=== PATIENT | female | born 1965 | race Caucasian/White ===

== ENCOUNTER 2023-06-30 09:05 | Outpatient (OUT) | payer BC, SELFPAY ==
--- NOTE | 2023-06-30 09:17 | MM_ITS ---
Patient Name: DENIA MARQUEZ MR#: [id number] : 1965 Exam Date: 06/30/2023 Ordering Doctor: DR Bartolo Lyn . RADIOLOGY REPORT PROCEDURE: MM TOMOSYNTHESIS SCREENING BI COMPARISON: MG MAMM SCREEN 3D MISHEL CAD, 06/19/2022. MG MAMM SCREEN 3D MISHEL CAD, 05/27/2021. MG MAMM SCREEN MISHEL W CAD, 05/03/2020. MG MAMM SCREEN MISHEL W CAD, 03/30/2019. INDICATIONS: Screening Calculator Name NCI Breast Cancer Risk Assessment Tool 5 Year Breast Cancer Risk 1.20% Lifetime Breast Cancer Risk 6.70% Personal Breast Cancer No Personal Ovarian Cancer No Treatments None Family Cancers None LOCATION: [facility] BREAST COMPOSITION: Heterogeneously dense,which may obscure small masses. FINDINGS: DIAGNOSTIC CATEGORY 2--BENIGN FINDING: RIGHT BREAST: No significant suspicious finding. Scattered benign-appearing lymph nodes are present. No significant change has occurred. LEFT BREAST: No significant suspicious finding. Scattered benign-appearing lymph nodes are present. No significant change has occurred. RECOMMENDATIONS: ROUTINE MAMMOGRAM AND CLINICAL EVALUATION IN 12 MONTHS. PLEASE NOTE: A NORMAL MAMMOGRAM DOES NOT EXCLUDE THE POSSIBILITY OF BREAST CANCER. A CLINICALLY SUSPICIOUS PALPABLE LUMP SHOULD BE BIOPSIED. Dictated by: Sumit Mckeon M.D. on 07/01/2023 at 14:40 Approved by: Sumit Mckeon M.D. on 07/01/2023 at 14:44
[2023-06-30 09:56] LABS: Basophils Percent Auto 0.5 % (0.2-2.0); Eosinophils Absolute Auto 0.3 10^3/uL (0.0-0.7); Eosinophils Percent Auto 4.4 % (0.9-7.0); Hematocrit 39.7 % (36.0-48.0); Hemoglobin 13.2 g/dL (12.0-16.0); Immature Granulocytes Abs Auto 0.02 10^3/uL (0.00-0.03); Immature Granulocytes Pct Auto 0.3 % (0.0-0.5); Lymphocytes Absolute Auto 1.5 10^3/uL (1.2-3.8); Lymphocytes Percent Auto 26.3 % (20.5-60.0); Mean Corpuscular HGB Conc 33.2 g/dL (29.9-35.2); Mean Corpuscular Volume 96.1 fL (81.0-99.0); Mean Platelet Volume 10.4 fL (9.5-13.5); Monocytes Absolute Auto 0.5 10^3/uL (0.3-0.8); Monocytes Percent Auto 9.4 % (1.7-12.0); Neutrophils Absolute Auto 3.4 10^3/uL (1.4-6.5); Neutrophils Percent Auto 59.1 % (43.0-75.0); Platelet Count 256 10^3/uL (150-450); Red Blood Count 4.13 10^6/uL (4.20-5.40); Red Cell Distribution Width 12.1 % (11.0-15.0); White Blood Count 5.7 10^3/uL (4.0-11.0)
[2023-06-30 10:55] LABS: Alanine Aminotransferase 30 U/L (14-59); Albumin Globulin Ratio 1.1; Albumin Level 3.5 g/dL (3.4-5.0); Alkaline Phosphatase 87 U/L (46-116); Anion Gap 10.8; Aspartate Amino Transferase 14 U/L (15-37); BUN Creatinine Ratio 26.7; Bilirubin Total 0.3 mg/dL (0.2-1.0); Calcium 9.7 mg/dL (8.5-10.1); Chloride 105 mmol/L (98-107); Chol HDL Ratio 2.4; Cholesterol 128 mg/dL (<=200); Estimated GFR (African America >60 (>=60); Estimated GFR (Non-African Ame >60 (>=60); Free T3 2.27 pg/mL (2.18-3.98); Globulin 3.1 g/dL; Glucose 91 mg/dL (74-106); HDL Cholesterol 54 mg/dL (40-60); Potassium 3.8 mmol/L (3.5-5.1); Sodium 142 mmol/L (136-145); Thyroid Stimulating Hormone 0.017 uIU/mL (0.358-3.740); Total Protein 6.6 g/dL (6.4-8.2); Triglycerides 50 mg/dL (<=150)
[2023-06-30 11:40] LABS: Estimated Average Glucose 103 mg/dL; Glycohemoglobin A1C 5.2 % (4.5-6.2)
== END 2023-06-30 09:06 | disposition home or self-care (01) ==
LOC: MAMMO 09:09
PROVIDERS: PCP Family Medicine; Visit Provider Family Medicine
DX: Z00.00 Encounter for general adult medical examination without abnormal findings (principal); Z12.31 Encounter for screening mammogram for malignant neoplasm of breast; E03.9 Hypothyroidism, unspecified; R53.83 Other fatigue; D64.9 Anemia, unspecified; E78.5 Hyperlipidemia, unspecified
CPT/HCPCS: 36415; 77063; 77067; 80053; 80061; 83036; 84436; 84443; 84481; 85025

== ENCOUNTER 2024-07-07 11:13 | Outpatient (OUT) | payer BC, SELFPAY ==
[2024-07-07 11:31] LABS: Basophils Percent Auto 0.6 % (0.2-2.0); Eosinophils Absolute Auto 0.2 10^3/uL (0.0-0.7); Eosinophils Percent Auto 2.3 % (0.9-7.0); Hematocrit 42.5 % (36.0-48.0); Hemoglobin 13.8 g/dL (12.0-16.0); Immature Granulocytes Abs Auto 0.02 10^3/uL (0.00-0.03); Immature Granulocytes Pct Auto 0.3 % (0.0-0.5); Lymphocytes Absolute Auto 1.9 10^3/uL (1.2-3.8); Lymphocytes Percent Auto 27.2 % (20.5-60.0); Mean Corpuscular HGB Conc 32.5 g/dL (29.9-35.2); Mean Corpuscular Hemoglobin 31.5 pg (26.7-34.0); Mean Platelet Volume 10.2 fL (9.5-13.5); Monocytes Absolute Auto 0.5 10^3/uL (0.3-0.8); Monocytes Percent Auto 6.5 % (1.7-12.0); Neutrophils Absolute Auto 4.4 10^3/uL (1.4-6.5); Neutrophils Percent Auto 63.1 % (43.0-75.0); Platelet Count 304 10^3/uL (150-450); Red Blood Count 4.38 10^6/uL (4.20-5.40); Red Cell Distribution Width 12.1 % (11.0-15.0); White Blood Count 6.9 10^3/uL (4.0-11.0)
[2024-07-07 12:03] LABS: Alanine Aminotransferase 23 U/L (14-59); Albumin Globulin Ratio 1.2; Albumin Level 3.8 g/dL (3.4-5.0); Alkaline Phosphatase 84 U/L (46-116); Aspartate Amino Transferase 17 U/L (15-37); BUN Creatinine Ratio 17.4; Bilirubin Total 0.6 mg/dL (0.2-1.0); Carbon Dioxide 31.9 mmol/L (21.0-32.0); Chloride 104 mmol/L (98-107); Chol HDL Ratio 2.3; Cholesterol 163 mg/dL (<=200); Estimated GFR (African America >60 (>=60 mL/min/1.73m^2); Estimated GFR (Non-African Ame >60 (>=60 mL/min/1.73m^2); Free T3 2.81 pg/mL (2.18-3.98); Globulin 3.3 g/dL; Glucose 91 mg/dL (74-106); HDL Cholesterol 72 mg/dL (40-60); Potassium 3.9 mmol/L (3.5-5.1); Sodium 137 mmol/L (136-145); Thyroid Stimulating Hormone 0.066 uIU/mL (0.358-3.740); Total Protein 7.1 g/dL (6.4-8.2); Triglycerides 59 mg/dL (<=150); VLDL CHOLESTEROL 11.8 mg/dL
[2024-07-07 12:20] LABS: Estimated Average Glucose 103 mg/dL; Glycohemoglobin A1C 5.2 % (4.5-6.2)
== END 2024-07-07 11:14 | disposition home or self-care (01) ==
LOC: LAB 11:13
PROVIDERS: PCP Family Medicine; Visit Provider Family Medicine
DX: Z00.00 Encounter for general adult medical examination without abnormal findings (principal); Z12.31 Encounter for screening mammogram for malignant neoplasm of breast
CPT/HCPCS: 36415; 77063; 77067; 80053; 80061; 83036; 83540; 84436; 84443; 84481; 85025

== ENCOUNTER 2024-07-07 12:46 | Outpatient (OUT) | payer BC, SELFPAY ==
--- NOTE | 2024-07-07 12:50 | MM_ITS ---
Patient Name: DENIA MARQUEZ MR#: [id number] : 1965 Exam Date: 07/07/2024 Ordering Doctor: DR Bartolo Lyn . RADIOLOGY REPORT PROCEDURE: MM TOMOSYNTHESIS SCREENING BI COMPARISON: MM TOMOSYNTHESIS SCREENING BI, 06/30/2023. MG MAMM SCREEN 3D MISHEL CAD, 06/19/2022. MG MAMM SCREEN 3D MISHEL CAD, 05/27/2021. MG MAMM SCREEN MISHEL W CAD, 03/30/2019. INDICATIONS: Screening Calculator Name NCI Breast Cancer Risk Assessment Tool 5 Year Breast Cancer Risk 1.30% Lifetime Breast Cancer Risk 6.60% Personal Breast Cancer No Personal Ovarian Cancer No Treatments None Family Cancers None LOCATION: [facility] BREAST COMPOSITION: The breasts are heterogeneously dense,which may obscure small masses. FINDINGS: DIAGNOSTIC CATEGORY 2--BENIGN FINDING: RIGHT BREAST: No significant suspicious finding. No significant change has occurred. LEFT BREAST: No significant suspicious finding. Scattered benign-appearing lymph nodes are present. No significant change has occurred. RECOMMENDATIONS: ROUTINE MAMMOGRAM AND CLINICAL EVALUATION IN 12 MONTHS. PLEASE NOTE: A NORMAL MAMMOGRAM DOES NOT EXCLUDE THE POSSIBILITY OF BREAST CANCER. A CLINICALLY SUSPICIOUS PALPABLE LUMP SHOULD BE BIOPSIED. Dictated by: Sumit Mckeon M.D. on 07/07/2024 at 15:13 Approved by: Sumit Mckeon M.D. on 07/07/2024 at 15:19
== END 2024-07-07 12:47 | disposition home or self-care (01) ==
LOC: MAMMO 12:46
PROVIDERS: PCP Family Medicine; Visit Provider Family Medicine
DX: Z12.31 Encounter for screening mammogram for malignant neoplasm of breast (principal)
CPT/HCPCS: 77063; 77067

== ENCOUNTER 2025-07-11 09:11 | Outpatient (OUT) | payer BC, SELFPAY ==
--- OUTSIDE RECORDS SUMMARY | 2025-07-11 09:14 | XMS_ITS | CCD ---
Author Organization [facility] Care Team Providers Care Analytical Manager Name Role Phone DARLENE AZUL Referring Unavailable DARLENE AZUL Primary Care Unavailable LATHA, DR COLON Primary Care Unavailable LATHA, DR COLON Admitting Unavailable LATHA, DR COLON Attending Unavailable LATHA, DR COLON Consulting Unavailable LATHA, DR COLON Primary Care Unavailable LATHA, DR COLON Admitting Unavailable LATHA, DR COLON Attending Unavailable LATHA, DR COLON Consulting Unavailable WEST, DR MY Matt Consulting Unavailable DARLENE AZUL Primary Care Unavailable EVA VIVAR Attending Unavailable STANTON PARK Attending UnavailSTANTON Jay Referring UnavailDARLENE Sorenson Primary Care Unavailable Allergies Allergy ClassificationReported Allergen(s)Allergy TypeDate of OnsetReaction(s) Facility (1 source)Penicillins; Translations: [PENICILLINS]Propensity to adverse reactions to drug (disorder)09-34-4424XcqMzlatg Repository Problems Problem ClassificationProblemDateDocumented DateEpisodic/ChronicConditions associated with dizziness or vertigo (2 sources)Dizziness and giddiness; Translations: [Dizziness]Onset: 09-17-2023 EpisodicConditions associated with dizziness or vertigo (1 source)Conditions associated with dizziness or vertigoOnset: 09-17-2023 Diabetes mellitus without complication (1 source)Hyperglycemia, unspecified; Translations: [HYPERGLYCEMIA UNSPECIFIED] Onset: 18-14-6094SqidtovbObciufscn of lipid metabolism (1 source)Hyperlipidemia, unspecified; Translations: [HYPERLIPIDEMIA UNSPECIFIED]Onset: 69-29-1456JaodsvgMcdhpgzfc hypertension (1 source)Hypertensive disorderOnset: 53-24-8869BsohybdGlnzixx and fatigue (1 source)Other fatigue; Translations: [OTHER FATIGUE]Onset: 63-96-4801Uqpbsqta Nutritional deficiencies (1 source)Vitamin D deficiency, unspecified; Translations: [VITAMIN D DEFICIENCY UNSPECIFIED]Onset: 46-60-3898HilncowGcmxn screening for suspected conditions (not mental disorders or infectious disease) (2 sources)Encounter for screening for malignant neoplasm of rectum; Translations: [Encounter for screening mammogram for malignant neoplasm of breast]Onset: 73-45-3679EgenllepVpeesbn disorders (7 sources)Hypothyroidism, unspecified; Translations: [Hypothyroidism, unspecified]Onset: 74-62-3132Aedmhdk Results Test NameValueInterpretationReference RangeFacilityCBC AND AUTO DIFFon 58-75-1812XBKUJHFB BASOPHIL0.1 X10E9/LNormal0.0-0.2PFayette [facility] Comment on above:Performed By: #### CBCA, 58268-9, THYR, CMP, #### [facility] ([id number]) [address] [place] [address] 18293THRZGFZZ NEUTROPHIL4.9 X10E9/LNormal1.5-6.6ProCorpus Christi Medical Center NorthwestComment on above:Performed By: #### CBCA, 63641-6, THYR, CMP, #### [facility] ([id number]) [address] [place] [address] 99750Gmblzqury/100 WBC (Bld)0.8 %NormalSelect Medical [facility] Comment on above:Performed By: #### CBCA, 10563-8, THYR, CMP, #### [facility] ([id number]) [address] [place] [address] 21985Mipgflfeubw (Bld) [#/Vol]0.1 10*3/uLNormal0.0-0.4[facility] ShawComment on above:Performed By: #### CBCA, 24033-8, THYR, CMP, #### [facility] ([id number]) [address] [place] [address] 80179Tsqbfgxombu/100 WBC (Bld)1.7 %NormalSelect Medical [facility] Comment on above:Performed By: #### CBCA, 99939-9, THYR, CMP, 06893-7 #### [facility] ([id number]) [address] [place] [address] 47997Kdsbutotjnw distribution width (RBC) [Ratio]13.0 %Normal 11.5-15.0[facility], [facility] ShawComment on above:Performed By: #### CBCA, 33343-9, THYR, CMP, #### [facility] ([id number]) [address] [place] [address] 95724Ksejrfkxhm (Bld) [Volume fraction]37.0 %Ujxhjb34-95PgdMdswekCorpus Christi Medical Center NorthwestComment on above:Performed By: #### CBCA, 35531-2, THYR, CMP, 31011-4 #### [facility] ([id number]) [address] [place] [address] 09754Fqrvzyeshj (Bld) [Mass/Vol]12.8 g/bVPvrlwx24.7-15.5PFayette County Memorial HospitalComment on above:Performed By: #### CBCA, 86948-6, THYR, CMP, 77454-7 #### [facility] ([id number]) [address] [place] [address] 69332Ueqceroeoxv (Bld) [#/Vol]1.7 10*3/uLNormal1.0-3.5PFayette County Memorial HospitalComment on above:Performed By: #### CBCA, 32396-2, THYR, CMP, 00195-4 #### [facility] ([id number]) [address] [place] [address] 99786Xnukgjqpifh/100 WBC (Bld)23.7 %NormalSelect Medical [facility] Comment on above:Performed By: #### CBCA, 57729-6, THYR, CMP, #### [facility] ([id number]) [address] [place] [address] 76405VFA (RBC) [Entitic mass]32.2 bwZymobk93-97ZbtXnwfojSelect Medical [facility] Hospital, [facility] ShawComment on above:Performed By: #### CBCA, 66345-4, THYR, CMP, 16866-0 #### [facility] ([id number]) [address] [place] [address] 52617DSCX (RBC) [Mass/Vol]34.6 g/dJJxlepn61-80OcsDpxjvsCorpus Christi Medical Center NorthwestComment on above:Performed By: #### CBCA, 96464-1, THYR, CMP, #### [facility] ([id number]) [address] [place] [address] 62012FVE (RBC) [Entitic vol]93 wVWhcbkp00-520WkxBeqtgu Fremont HospitalComment on above:Performed By: #### CBCA, 31435-4, THYR, CMP, 01715-3 #### [facility] ([id number]) [address] [place] [address] 95096Ftaeqdwjl (Bld) [#/Vol]0.5 10*3/uLNormal0-0.9[facility] ShawComment on above:Performed By: #### CBCA, 46488-8, THYR, CMP, 33230-3 #### [facility] ([id number]) [address] [place] [address] 94205Ghiqwfeqj/100 WBC (Bld)6.5 %NormalSelect Medical [facility] Comment on above:Performed By: #### CBCA, 96148-4, THYR, CMP, 57799-2 #### [facility] ([id number]) [address] [place] [address] 12747Swgqvvfppsh/100 WBC (Bld)67.3 %NormalSelect Medical [facility] Clinic [facility] Comment on above:Performed By: #### CBCA, 76487-0, THYR, CMP, 95236-1 #### [facility] ([id number]) [address] [place] [address] 49178Kyxeebgb mean volume (Bld) [Entitic vol]8.9 fLNormal7-12 ProMedicNorthridge Hospital Medical CenterComment on above:Performed By: #### CBCA, 72956-1, THYR, CMP, 88337-7 #### [facility] ([id number]) [address] [place] [address] 07866Dewhqvano (Bld) [#/Vol]253 10*3/tCDltfao107-649NtpDgfdvtSelect Medical [facility] Clinic Rehabilitation Hospital, [facility] ShawComment on above:Performed By: #### CBCA, 26402-5, THYR, CMP, 32050-4 #### [facility] ([id number]) [address] [place] [address] 74109TAD COUNT3.98 X10E12/LNormal3.80-5.20[facility] Comment on above:Performed By: #### CBCA, 13591-4, THYR, CMP, #### [facility] ([id number]) [address] [place] [address] 91147NCG (Bld) [#/Vol]7.3 10*3/uLNormal4.0-11.0[facility] ShawComment on above:Performed By: #### CBCA, 05455-0, THYR, CMP, 38048-7 #### [facility] ([id number]) [address] [place] [address] 57559KOAODKGTCDRLS METABOLIC PANELon 58-41-9694Lmdqvja [Mass/Vol]4.1 g/dLNormal3.2-5.3PFayette County Memorial HospitalComment on above:Performed By: #### CBCA, 68066-7, THYR, CMP, 67333-5 #### [facility] ([id number]) [address] [place] [address] 96461NHL [Catalytic activity/Vol]73 U/OEwshby78-976MfaEmsiqhSelect Medical Cleveland Clinic Rehabilitation Hospital, Edwin ShawComment on above:Performed By: #### CBCA, 11083-5, THYR, CMP, 12032-6 #### [facility] ([id number]) [address] [place] [address] 99862XBS [Catalytic activity/Vol]20 U/LNormal0-31PFayette County Memorial HospitalComment on above:Performed By: #### CBCA, 98456-3, THYR, CMP, 32964-8 #### [facility] ([id number]) [address] [place] [address] 18656Iqvlv gap [Moles/Vol]2 mmol/LLow5-15ProCorp[facility] Comment on above:Performed By: #### CBCA, 41338-6, THYR, CMP, 19307-7 #### [facility] ([id number]) [address] [place] [address] 63400GVU [Catalytic activity/Vol]23 U/LNormal0-41ProCorpus Christi Medical Center NorthwestComment on above:Performed By: #### CBCA, 46349-8, THYR, CMP, 97977-2 #### [facility] ([id number]) [address] [place] [address] 62187Vmessdblx [Mass/Vol]0.5 mg/dLNormal0.3-1.2PFayette County Memorial HospitalComment on above:Performed By: #### CBCA, 65312-8, THYR, CMP, 12957-0 #### [facility] ([id number]) [address] [place] [address] 95177Vppoanr [Mass/Vol]9.9 mg/dLNormal8.5-10.5PFayette County Memorial HospitalComment on above:Performed By: #### CBCA, 43717-9, THYR, CMP, 05262-0 #### [facility] ([id number]) [address] [place] [address] 33430Wrqgtayn [Moles/Vol]109 mmol/UYckkwi58-842RrmJdzawoSelect Medical [facility] Clinic Rehabilitation Hospital, [facility] ShawComment on above:Performed By: #### CBCSaurabh, 01144-9, THYR, CMP, 77432-9 #### [facility] ([id number]) [address] [place] [address] 44354NB5 [Moles/Vol]27 mmol/SDyckpv30-01KuhTmwxfiFayette County Memorial Hospital Comment on above:Performed By: #### JUAN, 90473-6, THYR, CMP, 56912-9 #### [facility] ([id number]) [address] [place] [address] 38153Yjptqrnvng [Mass/Vol]0.57 mg/dLNormal0.40-1.00ProCorpus Christi Medical Center NorthwestComment on above:Result Comment: METHOD TRACEABLE TO IDMS STANDARD Performed By: #### JUAN, 24040-3, THYR, CMP, 53666-0 #### [facility] ([id number]) [address] [place] [address] 82357lKWE (CKD-EPI) NON-RACE DEPENDENT>90Normal>59ProCorpus Christi Medical Center NorthwestComment on above:Result Comment: Reported eGFR is based on the CKD-EPI 2021 equation that does not use a race coefficient.Performed By: #### CBCA, 89781-2, THYR, CMP, 29081-0 #### [facility] ([id number]) [address] [place] [address] 62877Ynmemel [Mass/Vol]93 mg/nQMricnv11-85ZvtQrctnrSelect Medical [facility] Comment on above:Performed By: #### CBCA, 35237-7, THYR, CMP, 23602-6 #### [facility] ([id number]) [address] [place] [address] 80929Rnunzzqbk [Moles/Vol]3.6 mmol/LNormal3.5-5.0ProCorpus Christi Medical Center NorthwestComment on above:Performed By: #### JUAN, 33641-5, THYR, CMP, 60379-6 #### [facility] ([id number]) [address] [place] [address] 75343Txudcfv [Mass/Vol]6.9 g/dLNormal6.0-8.0ProCorpus Christi Medical Center NorthwestComment on above:Performed By: #### JUAN, 35914-7, THYR, CMP, 79683-5 #### [facility] ([id number]) [address] [place] [address] 37805Hrcagx [Moles/Vol]138 mmol/TInypdj525-097EkkAeotah Fremont HospitalComment on above:Performed By: #### JUAN, 62085-3, THYR, CMP, 48390-5 #### [facility] ([id number]) [address] [place] [address] 12641Gydc nitrogen [Mass/Vol]17 mg/dLNormal5-23ProCorpus Christi Medical Center NorthwestComment on above:Performed By: #### JUAN, 35717-8, THYR, CMP, 26525-6 #### [facility] ([id number]) [address] [place] [address] 16568WC BRAIN WO CONTon 25-41-0566DT BRAIN WO CONTCT BRAIN WO CONT EXAM:CT BRAIN WO CONT INDICATION: Vertigo, peripheral COMPARISON: 11/29/2013 TECHNIQUE: Standard noncontrast axial CT sections through the head. All CT scans at this facility use dose modulation, iterative reconstruction, and/or weight based dosing when appropriate to reduce radiation dose to as low as reasonably achievable. FINDINGS: Brain Parenchyma: No acute hemorrhage, cerebral edema, or acute cortical infarction. No mass effect, or midline shift. Ventricles and Sulci: Normal for age. Extra-Axial Spaces: No extra-axial fluid collection. Orbits, paranasal sinuses, midface structures, mastoid air cells: Normal Cranium and extracranial soft tissues: Normal IMPRESSION: No acute or subacute intracranial abnormalities. Finalized by Kenji Chavez on 09/17/2023 11:06 AMNormalProCorpus Christi Medical Center NorthwestMAGNESIUMon 30-90-5849Rxfdcdthu [Mass/Vol]2.1 mg/dLNormal1.8-2.6 ProMSuburban Medical CenterComment on above:Performed By: #### CBCA, 66365-6, THYR, CMP, 51168-3 #### [facility] ([id number]) [address] [place] [address] 47440VDJXQAK PROFILEon 46-60-7351Ykpj T4 [Mass/Vol]1.13 ng/dLNormal 0.61-1.60[facility] ShawComment on above:Performed By: #### CBCA, 48252-7, THYR, CMP, 08096-1 #### [facility] ([id number]) [address] [place] [address] 48771ZFU3.01 uIU/mLLow0.49-4.67[facility], [facility] ShawComment on above:Performed By: #### CBCA, 42150-6, THYR, CMP, 93835-2 #### [facility] ([id number]) [address] [place] [address] 33792NDKRRORO Ion 17-72-3250Zkjxngbe I.cardiac [Mass/Vol]ng/mLNormal 0.00-0.04[facility], [facility] ShawComment on above:Performed By: #### CBCA, 81094-3, THYR, CMP, 89187-9 #### [facility] ([id number]) [address] [place] [address] 88704CNYTKPAwt 40-99-1590Xfbmvev1.5 uIU/mLNormal2.6-24.9The [facility] HospitalComment on above:Performed By: #### INSULIN #### [facility] [address] [place] [address] Dr. Nicole Salgado AUTO DIFFon 31-03-2391SEFY #0.0 103/ulNormal0.0-0.1The [facility] HospitalComment on above:Performed By: #### CBC #### [facility] [address] [place] [address] Dr. Nicole HaiderBasophils/100 WBC (Bld)0.8 %Normal0.2-2.0[facility] Comment on above:Performed By: #### CBC #### [facility] [address] [place] [address] Dr. Nicole Osullivan #0.1 103/ulNormal0.0-0.7The [facility] HospitalComment on above: Performed By: #### CBC #### [facility] [address] [place] [address] Dr. Nicole Valdesosinophils/100 WBC (Bld)2.0 %Normal0.9-7.0[facility] Comment on above:Performed By: #### CBC #### [facility] [address] [place] [address] Dr. Nicole Valdesrythrocyte distribution width (RBC) [Ratio]12.2 %Epofhr49.0-15.0 [facility]ittman HospitalComment on above:Performed By: #### CBC #### [facility] [address] [place] [address] Dr. Nicole HaiderHematocrit (Bld) [Volume fraction]40.6 %Rgzehv20.0-48.0The [facility] HospitalComment on above:Performed By: #### CBC #### [facility] [address] [place] [address] Dr. Nicole HaiderHemoglobin (Bld) [Mass/Vol]13.5 g/qVXlhbsa12.0-16.0[facility]itt[facility] HospitalComment on above:Performed By: #### CBC #### [facility] [address] [place] [address] Dr. Nicole Bradford #0.02 10e3/ulNormal0.00-0.03The [facility] HospitalComment on above:Performed By: #### CBC #### [facility] [address] [place] [address] Dr. Nicole Bradford %0.4 %Normal0.0-0.5The [facility] HospitalComment on above: Performed By: #### CBC #### [facility] [address] [place] [address] Dr. Nicole MunozLaisha #1.2 103/ulNormal1.2-3.8The [facility] HospitalComment on above:Performed By: #### CBC #### [facility] [address] [place] [address] Dr. Nicole Munozhocytes/100 WBC (Bld)23.0 %Mdbjwf99.5-60.0The [facility] HospitalCommclaren bay special care hospital on above:Performed By: #### CBC #### [facility] [address] [place] [address] Dr. Nicole VillafanaUAL DIFF REQNONormalThe [facility] HospitalComment on above: Performed By: #### CBC #### [facility] [address] [place] [address] Dr. Nicole Canada (RBC) [Entitic mass]31.7 tgHwbovk21.7-34.0The [facility] on above:Performed By: #### CBC #### [facility] [address] [place] [address] Dr. Nicole Canada (RBC) [Mass/Vol]33.3 g/rLBafegb38.9-35.2The [facility] HospitalComment on above:Performed By: #### CBC #### [facility] [address] [place] [address] Dr. Nicole Canada (RBC) [Entitic vol]95.3 eHLxswya68.0-99.0The [facility] HospitalComment on above:Performed By: #### CBC #### [facility] [address] [place], [place] [address] Dr. Nicole Araya #0.3 103/ulNormal0.3-0.8The [facility] HospitalComment on above:Performed By: #### CBC #### [facility] [address] [place] [address] Dr. Nicole Millerocytes/100 WBC (Bld)6.5 %Normal1.7-12.0The [facility] Comment on above:Performed By: #### CBC #### [facility] [address] [place] [address] Dr. Nicole Cee #3.4 103/ulNormal1.4-6.5The [facility] HospitalComment on above:Performed By: #### CBC #### [facility] [address] [place] [address] Dr. Nicole Yoonutrophils/100 WBC (Bld)67.3 %Hpuhjk80.0-75.0The [facility] HospitalComment on above:Performed By: #### CBC #### [facility] [address] [place] [address] Dr. Nicole Hernandezlet mean volume (Bld) [Entitic vol]10.4 fLNormal9.5-13.5The [facility] HospitalComment on above:Performed By: #### CBC #### [facility] [address] [place] [address] Dr. Nicole HaiderPLT274 103/dhWjsfxb123-797Bmd [facility] HospitalComment on above: Performed By: #### CBC #### [facility] [address] [place] [address] Dr. Nicole HaiderRBC4.26 106/ulNormal4.20-5.40The [facility] HospitalComment on above:Performed By: #### CBC #### [facility] [address] [place] [address] Dr. Nicole HaiderWBC5.0 103/ulNormal4.0-11.0The [facility] HospitalComment on above: Performed By: #### CBC #### [facility] [address] [place] [address] Dr. Nicole Menezes T3on 23-35-9773JEZQ T32.54 pg/mlLNormal2.18-3.98[facility]itt[facility] HospitalComment on above:Performed By: #### INSULIN #### [facility] [address] [address] [address] Nicole JuanID PROFILEon 66-43-6636MMJV-HDL RATIO NORMSEE BELOWNoUniversity Hospitals Geauga Medical CenterComment on above:Result Comment: 3.3 - 4.4 LOW RISK 4.4 - 7.1 AVERAGE RISK 7.1 - 11.0 MODERATE RISK >11.0 HIGH RISKPerformed By: #### T4, FT3, TSH, LIPID, CMP #### [facility] [address] [address] [address] Nicole Paytonesterol [Mass/Vol]156 mg/dLNormal<=200The [facility] Comment on above:Performed By: #### T4, FT3, TSH, LIPID, CMP #### [facility] [address] [address] [address] Nicole Paytonesterol in HDL [Mass/Vol]65 mg/dLCritically vdnf84-80Yjc [facility] HospitalCommclaren bay special care hospital on above:Performed By: #### T4, FT3, TSH, LIPID, CMP #### [facility] [address] [address] [address] Nicole Paytonesterol in LDL [Mass/Vol]81.4 mg/dLNoUniversity Hospitals Geauga Medical CenterCommclaren bay special care hospital on above:Performed By: #### T4, FT3, TSH, LIPID, CMP #### [facility] [address] [address] [address] Nicole Villar.total/Cholesterol in HDL [Mass ratio]2.4 {ratio} NormalThe [facility] Hospital on above:Performed By: #### T4, FT3, TSH, LIPID, CMP #### [facility] [address] [place] [address] Dr. Nicole Jackson NORMAL> or = 60 mg/dl - LOW CARDIOVASCULAR RISK <40 mg/dl - HIGH CARDIOVASCULAR RISKNormalThe Ana HospitalComment on above:Performed By: #### T4, FT3, TSH, LIPID, CMP #### [facility] [address] [address] [address] Nicole Serrano CALC NORMALSEE BELOWCrystal Clinic Orthopedic CenterComment on above:Result Comment: <100 mg/dl OPTIMAL 100 - 129 mg/dl NEAR OR ABOVE OPTIMAL 130 - 159 mg/dl BORDERLINE HIGH 160 - 189 mg/dl HIGH >190 mg/dl VERY HIGH Performed By: #### T4, FT3, TSH, LIPID, CMP #### [facility] [address] [address] [address] Nicole HaiderTriglyceride [Mass/Vol]48 mg/dLNormal<=150[facility] Comment on above:Performed By: #### T4, FT3, TSH, LIPID, CMP #### [facility] [address] [address] [address] Nicole HaiderVLDL CALC9.6 mg/dLNoUniversity Hospitals Geauga Medical CenterComment on above: Performed By: #### T4, FT3, TSH, LIPID, CMP #### [facility] [address] [address] [address] Nicole HaiderMG MAMM SCREEN 3D MISHEL CADon 10-10-5735MC MAMM SCREEN 3D MISHEL CAD Patient: DENIA MARQUEZ Exam Date: 06/19/2022 : 1965 Gender:F Ordering : DR DARLENE AZUL . Admission #: [id number] Family : Order #: [id number] CLICK HERE TO VIEW EXAM RADIOLOGY REPORT PROCEDURE: MAMMOGRAM SCREENING 3D BILATERAL CAD COMPARISON: MG MAMM SCREEN MISHEL W CAD, 05/03/2020. MG MAMM SCREEN 3D MISHEL CAD, 05/27/2021. INDICATIONS: Screening mammography Calculator Name NCI Breast Cancer Risk Assessment Tool 5 Year Breast Cancer Risk 1.20% Lifetime Breast Cancer Risk 6.90% Personal Breast Cancer No Personal Ovarian Cancer No Treatments None Family Cancers None LOCATION: [facility] BREAST COMPOSITION: Heterogeneously dense,which may obscure small masses. FINDINGS: DIAGNOSTIC CATEGORY 2--BENIGN FINDING. NO CHANGE FROM COMPARISON. Scattered benign-appearing nodules are present. Scattered benign-appearing calcifications are present. Scattered benign-appearing lymph nodes are present. RIGHT BREAST: No significant suspicious finding. LEFT BREAST: No significant suspicious finding. RECOMMENDATIONS: ROUTINE MAMMOGRAM AND CLINICAL EVALUATION IN 12 MONTHS. PLEASE NOTE: A NORMAL MAMMOGRAM DOES NOT EXCLUDE THE POSSIBILITY OF BREAST CANCER. A CLINICALLY SUSPICIOUS PALPABLE LUMP SHOULD BE BIOPSIED. Dictated by: My Perez MD on 06/19/2022 at 13:45 Approved by: My Perez MD on 06/19/2022 at 13:48[facility] PROF 14(COMP METB)on 34-87-8438Hcphkxh [Mass/Vol]3.9 g/dLNormal3.4-5.0[facility]ittman HospitalComment on above:Performed By: #### T4, FT3, TSH, LIPID, CMP #### [facility] [address] [place] [address] Dr. Nicole HaiderAlbumin/Globulin [Mass ratio]1.1 {ratio}NormalThe [facility] HospitalComment on above:Performed By: #### T4, FT3, TSH, LIPID, CMP #### [facility] [address] [place] [address] Dr. Nicole Hamilton [Catalytic activity/Vol]91 U/PXkrawi05-836Oak [facility] on above:Performed By: #### T4, FT3, TSH, LIPID, CMP #### [facility] [address] [place] [address] Dr. Nicole Lazo [Catalytic activity/Vol]15 U/NVksmmt56-87Koc [facility] on above:Performed By: #### T4, FT3, TSH, LIPID, CMP #### [facility] [address] [place] [address] Dr. Nicole Levi gap [Moles/Vol]8.4 mmol/LNormalThe [facility] on above:Performed By: #### T4, FT3, TSH, LIPID, CMP #### [facility] [address] [place] [address] Dr. Nicole San [Catalytic activity/Vol]11 U/LCritically clr35-44Xqi [facility] Hospitalment on above:Performed By: #### T4, FT3, TSH, LIPID, CMP #### [facility] [facility] [address] [address] [address] Nicole HaiderBilirubin [Mass/Vol]0.5 mg/dLNormal0.2-1.0[facility] Comment on above:Performed By: #### T4, FT3, TSH, LIPID, CMP #### [facility] [address] [address] [address] Nicole HaiderCalcium [Mass/Vol]10.2 mg/dLCritically high8.5-10.1The [facility] HospitalComment on above:Performed By: #### T4, FT3, TSH, LIPID, CMP #### [facility] [address] [place] [address] Dr. Nicole HaiderChloride [Moles/Vol]106 mmol/VUycell61-537Tod [facility] Comment on above:Performed By: #### T4, FT3, TSH, LIPID, CMP #### [facility] [address] [place] [address] Dr. Nicole HaiderCO2 [Moles/Vol]28.8 mmol/BJaylic42.0-32.0[facility] Comment on above:Performed By: #### T4, FT3, TSH, LIPID, CMP #### [facility] [address] [place] [address] Dr. Nicole HaiderCreatinine [Mass/Vol]0.64 mg/dLNormal0.55-1.02[facility] HospitalComment on above:Performed By: #### T4, FT3, TSH, LIPID, CMP #### [facility] [address] [place] [address] Dr. Nicole ValdesGFR-AF MONGOLIAN>60Normal>=60The [facility] HospitalComment on above:Performed By: #### T4, FT3, TSH, LIPID, CMP #### [facility] [address] [place] [address] Dr. Nicole ValdesGFR-NON AF MONGOLIAN>60Normal>=60[facility] HospitalComment on above:Performed By: #### T4, FT3, TSH, LIPID, CMP #### [facility] [address] [place] [address] Dr. Nicole HaiderGlobulin (S) [Mass/Vol]3.5 g/dLNoUniversity Hospitals Geauga Medical CenterComment on above:Performed By: #### T4, FT3, TSH, LIPID, CMP #### [facility] [address] [place] [address] Dr. Nicole HaiderGlucose [Mass/Vol]96 mg/sIWstgpm81-791Vqa [facility] Comment on above:Performed By: #### T4, FT3, TSH, LIPID, CMP #### [facility] [address] [place] [address] Dr. Nicole HaiderPotassium [Moles/Vol]4.2 mmol/LNormal3.5-5.1[facility] Comment on above:Performed By: #### T4, FT3, TSH, LIPID, CMP #### [facility] [address] [place] [address] Dr. Nicole HadierProtein [Mass/Vol]7.4 g/dLNormal6.4-8.2The [facility] Comment on above:Performed By: #### T4, FT3, TSH, LIPID, CMP #### [facility] [address] [place] [address] Dr. Nicole HaiderSodium [Moles/Vol]139 mmol/CDfippz361-554DkgWadsworth-Rittman Hospital Comment on above:Performed By: #### T4, FT3, TSH, LIPID, CMP #### [facility] [address] [place] [address] Dr. Nicole HaiderUrea nitrogen [Mass/Vol]15.0 mg/dLNormal7.0-18.0The [facility] HospitalComment on above:Performed By: #### T4, FT3, TSH, LIPID, CMP #### [facility] [address] [place] [address] Dr. Nicole HaiderUrea nitrogen/Creatinine [Mass ratio]23.4 mg/mgNoUniversity Hospitals Geauga Medical CenterComment on above:Performed By: #### T4, FT3, TSH, LIPID, CMP #### [facility] [address] [place] [address] Dr. Nicole Restrepo4on 89-89-8449Y7 [Mass/Vol]8.10 ug/dLNormal4.80-13.90The [facility] HospitalComment on above:Performed By: #### INSULIN #### [facility] [address] [place] [address] Dr. Nicole Nieto 96-62-5702QTD6.037 uIU/mLCritically low0.358-3.740The [facility] HospitalComment on above:Performed By: #### T4, FT3, TSH, LIPID, CMP #### [facility] [address] [place] [address] Dr. Nicole HaiderVITAMIN D 25 OHon 04-83-7610TKO D 25-OH44.9 ng/mLNormalThe [facility] HospitalComment on above:Performed By: #### VITAD #### [facility] [address] [place] [address] Dr. Nicole Thomas [facility] HospitalComment on above: Result Comment: <20 ng/mL Vit D deficient 20 - <30 ng/mL Vit D insufficient 30 - 100 ng/mL Vit D sufficient >100 ng/mL Potential ToxicityPerformed By: #### VITAD #### [facility] [address] [place] [address] Dr. Nicole Menezes T3on 61-78-6509GXVS T33.14 pg/mlLNormal2.77-5.27The [facility] HospitalComment on above:Performed By: #### T4, FT3, TSH #### [facility] [address] [place] [address] Dr. Nicole Restrepo4on 45-46-9972D3 [Mass/Vol]9.10 ug/dLNormal5.53-11.00[facility]-Rittman HospitalComment on above:Performed By: #### T4, FT3, TSH #### [facility] [address] [place] [address] Dr. Nicole Nieto 84-88-9885QEY3.052 uIU/mLCritically low0.470-4.680[facility]ittman HospitalComment on above:Performed By: #### T4, FT3, TSH #### [facility] [address] [address] [address] Nicole Salter [facility] BELOWCrystal Clinic Orthopedic CenterComment on above: Result Comment: <0.34 UIU/ml HYPERTHYROID 0.34-5.60 UIU/ml EUTHYROID >5.60 UIU/ml HYPOTHYROIDPerformed By: #### T4, FT3, TSH #### [facility] [address] [address] [address] Nicole HaiderThyroid Stim. Horm.on 54-81-3161Olnerfjguvo Qn0.03 m[IU]/LLow 0.30-5.00[facility] DublinComment on above:Performed By: #### TSH, T4, FT4 #### [address] [place] [address] [employer] Person: Didier Garcia MDThyroxine T4on 42-14-1638P8 mass conc8.1 ug/dL Normal4.5-12.0[facility] - DublinComment on above:Performed By: #### TSH, T4, FT4 #### [address] [place] [address] [employer] Person: Didier Garcia MDThyroxine, Freeon 94-10-2980Ukodotzol, Free1.53 ng/dLNormal0.93-1.70[facility] - DublinComment on above:Performed By: #### TSH, T4, FT4 #### [facility] [address] [place] [address] [employer] Person: Didier Garcia MD Encounters Encounter DateEncounter TypeCare ProviderFacilityStart: 09-17-2023 End: 48-66-2610Rsqxfdota department patient visitSTANTON OBI [facility] Jacksontart: 06-72-6999Ubojzmupf for general adult medical examination without abnormal findingsDR DARLENE [facility] HospitalStart: 06-19-2022 End: 09-15-6336jjxboqpsgvSP DARLENE HOYFacility:O6Vvbya: 06-19-2022 End: 26-31-0623Ntzfbsqze for general adult medical examination without abnormal findingsDR DARLENE HOYFacility:W8Oilcu: 07-11-2021 End: 95-71-1168mprmkurbymLC DARLENE HOYFacility:G7Qghlz: 10-17-2018 End: 35-38-5157Cigofpo encounter procedureDOUGChildren's Hospital for Rehabilitation Procedures DateProcedureProcedure DetailPerforming ClinicianStart: 84-94-3920Izfma of free thyroxineDOUGLAS HOYStart: 87-64-3122Usyof of thyroid stimulating hormone tsh DARLENE HOYStart: 46-87-9182Xvznk of thyroxine totalDOUGTIMPANOGOS REGIONAL HOSPITAL Payers DatePayer CategoryPayerPolicy [id number] [id number] [id number] [id number] [id number] Summary Purpose Family History No Family History Records FoundNo Family History Records FoundNo Family History Records Found Advance Directives No Advanced Directives Records FoundNo Advanced Directives Records FoundNo Advanced Directives Records Found Additional Source Comments INFORMATION SOURCE (unrecogn ized section and content) DATE CREATED AUTHOR 10/18/2018 [facility] DATE CREATED AUTHOR AUTHOR'S ORGANIZ ATION 07/08/2022 [facility] DATE CREATED AUTHOR AUTHOR'S ORGANIZ ATION 09/19/2023 [facility] FOR RECORDS PERTAINING TO PATIENTS WHO ARE OR HAVE BEEN ENROLLED IN A CHEMICAL DEPENDENCY/SUBSTANCEABUSE PROGRAM, SOME INFORMATION MAY BE OMITTED. This clinical summary was aggregated from multiple sources. Caution should be exercised in using it in the provision of clinical care. This summary normalizes information from multiple sources, and as a consequence, information in this document may materially change the coding, format and clinical context of patient data. In addition, data may be omitted in some cases. CLINICAL DECISIONS SHOULD BE BASED ON THE PRIMARY CLINICAL RECORDS. [facility] provides no warranty or guarantee of the accuracy or completeness of information in this document.
--- NOTE | 2025-07-11 09:17 | MM_ITS ---
Patient Name: DENIA MARQUEZ MR#: [id number] : 1965 Exam Date: 07/11/2025 Ordering Doctor: DR DARLENE AZUL . RADIOLOGY REPORT PROCEDURE: MM TOMOSYNTHESIS SCREENING BI COMPARISON: MM TOMOSYNTHESIS SCREENING BI, 07/07/2024. MM TOMOSYNTHESIS SCREENING BI, 06/30/2023. MG MAMM SCREEN 3D MISHEL CAD, 06/19/2022. MG MAMM SCREEN MISHEL W CAD, 03/30/2019. INDICATIONS: Screening Calculator Name NCI Breast Cancer Risk Assessment Tool 5 Year Breast Cancer Risk 1.30% Lifetime Breast Cancer Risk 6.40% Personal Breast Cancer No Personal Ovarian Cancer No Treatments None Family Cancers None LOCATION: [facility] BREAST COMPOSITION: The breasts are heterogeneously dense, which may obscure small masses. FINDINGS: RIGHT BREAST: No significant suspicious finding. LEFT BREAST: No significant suspicious finding. Benign-appearing calcifications are present. There is a similar presumed lymph node along the left chest wall. DIAGNOSTIC CATEGORY 2--BENIGN FINDING. NO CHANGE FROM COMPARISON. RECOMMENDATIONS: ROUTINE MAMMOGRAM AND CLINICAL EVALUATION IN 12 MONTHS. Dictated by: Froylan Webb MD on 07/11/2025 at 14:39 Approved by: Froylan Webb MD on 07/11/2025 at 14:45
== END 2025-07-11 09:12 | disposition home or self-care (01) ==
LOC: MAMMO 09:11
PROVIDERS: PCP Family Medicine; Visit Provider Family Medicine
DX: Z00.00 Encounter for general adult medical examination without abnormal findings (principal); Z12.31 Encounter for screening mammogram for malignant neoplasm of breast
CPT/HCPCS: 36415; 77063; 77067; 80053; 80061; 82306; 83036; 83525; 83540; 84436; 84443; 84481; 85025

== ENCOUNTER 2025-07-11 11:37 | Outpatient (OUT) | payer BC, SELFPAY ==
[2025-07-11 12:19] LABS: Hematocrit 40.8 % (36.0-48.0); Hemoglobin 13.2 g/dL (12.0-16.0); Immature Granulocytes Abs Auto 0.01 10^3/uL (0.00-0.03); Immature Granulocytes Pct Auto 0.2 % (0.0-0.5); Lymphocytes Absolute Auto 2.1 10^3/uL (1.2-3.8); Mean Corpuscular HGB Conc 32.4 g/dL (29.9-35.2); Mean Corpuscular Hemoglobin 31.4 pg (26.7-34.0); Mean Corpuscular Volume 97.1 fL (81.0-99.0); Platelet Count 289 10^3/uL (150-450); Red Blood Count 4.20 10^6/uL (4.20-5.40); White Blood Count 6.0 10^3/uL (4.0-11.0)
[2025-07-11 13:50] LABS: Iron 89.0 ug/dL (50.0-170.0)
[2025-07-11 13:55] LABS: Alanine Aminotransferase 22 U/L (14-59); Albumin Globulin Ratio 1.2; Albumin Level 4.0 g/dL (3.4-5.0); Alkaline Phosphatase 90 U/L (46-116); Anion Gap 7.2; Aspartate Amino Transferase 15 U/L (15-37); Blood Urea Nitrogen 16.0 mg/dL (7.0-18.0); Calcium 10.2 mg/dL (8.5-10.1); Carbon Dioxide 30.7 mmol/L (21.0-32.0); Chloride 106 mmol/L (98-107); Cholesterol 159 mg/dL (<=200); Estimated GFR (African America >60 (>=60 mL/min/1.73m^2); Estimated GFR (Non-African Ame >60 (>=60 mL/min/1.73m^2); Globulin 3.3 g/dL; Glucose 88 mg/dL (74-106); HDL Cholesterol 64 mg/dL (40-60); Potassium 3.9 mmol/L (3.5-5.1); Sodium 140 mmol/L (136-145); Thyroid Stimulating Hormone 0.022 uIU/mL (0.358-3.740); Total Protein 7.3 g/dL (6.4-8.2); Triglycerides 54 mg/dL (<=150); VLDL CHOLESTEROL 10.8 mg/dL
[2025-07-11 14:18] LABS: Free T3 3.31 pg/mL (2.18-3.98)
== END 2025-07-11 11:38 | disposition home or self-care (01) ==
LOC: LAB 11:38
PROVIDERS: PCP Family Medicine; Visit Provider Family Medicine
DX: Z00.00 Encounter for general adult medical examination without abnormal findings (principal)
CPT/HCPCS: 36415; 80053; 80061; 82306; 83036; 83525; 83540; 84436; 84443; 84481; 85025